=== PATIENT | male | born 1975 | race Caucasian/White ===

== ENCOUNTER 2019-04-19 22:02 | Inpatient (IN) | payer OTHER ==
[~2019-04-19] VITALS: Ht 172.7 cm; Wt 95.3 kg
[2019-04-19] MEDS ORDERED: ZANTAC300 MG (22:10)
[2019-04-19] MEDS ORDERED: NEURONTIN300 MG (22:10)
[2019-04-19] MEDS ORDERED: CLONAZEPAM0.5 MG (22:10)
[2019-04-19] MEDS ORDERED: EFFER-K 10 MEQ10 MEQ (22:11)
[2019-04-19] MEDS ORDERED: AMBIEN10 MG (22:11)
[2019-04-19] MEDS ORDERED: PRILOSEC OTC20 MG (22:12)
--- NOTE | 2019-04-19 22:12 | NUR ---
SE REDCIBE PTE ALERTA Y ORIENTADO X3,TRANSFERIDO DEL [facility] EN AMBULANCIAS,PTE REFIERE DOLOR ABDOMINAL,REFIERE TENER DIVERTICULITIS,LLEGO CANALIZADO MANO IZQUIERDA CON UN 0.9%,ES PTE DEL .
--- NOTE | 2019-04-19 23:38 | NUR ---
MS WARD ORIENTA PTE SOBRE TX MEDICO EL CUAL REFIERE ENTENDER.SE LE EXTRAEN MUESTRAS,SE CANALIZA Y SE COLOCA FLUIDOS DE MANTENIMIENTO,SE NOTIFICA CT.
--- NOTE | 2019-04-20 07:33 | NUR ---
SE RECIBE DE TURNO ANTERIOR. PACIENTE ALERTA Y ORIENTADO EN CINDY ESFERAS. BUEN PATRON RESPIRATORIO. PIEL TIBIA AL TACTO. CANALIZACION PATENTE, LUZ ELENA DE EDEMA Y/O ENROJECIMIENTO RECIBIENDO IV FLUID ORDENADO. PACIENTE EN ESPERA DE CONSULTA CON DR SPICER.
[2019-04-25] MEDS ORDERED: HYOSCYAMINE0.125 M1 SL (08:59)
[2019-04-25] MEDS ORDERED: METRONIDAZ500 MG/100 PO (09:00)
[2019-04-25] MEDS ORDERED: LEVAQUIN750 MG PO (09:01)
== END 2019-04-25 11:55 | disposition home or self-care (01) | DRG 392 ==
LOC: ER 22:02 → SURG 04-20 15:44
PROVIDERS: ADMIT Colon & Rectal Surgery
PROC: BW21Y0Z Computerized Tomography (CT Scan) of Abdomen and Pelvis using Other Contrast, Unenhanced and Enhanced (ICD-10-PCS; principal; 2019-04-20)
PROC: 02HV33Z Insertion of Infusion Device into Superior Vena Cava, Percutaneous Approach (ICD-10-PCS; 2019-04-21)
DX: K57.20 Diverticulitis of large intestine with perforation and abscess without bleeding (principal)

== ENCOUNTER 2019-06-01 09:02 | Day surgery (SDC) | payer OTHER ==
[~2019-06-01 09:02] MED LIST: AMBIEN10 MG; CLONAZEPAM0.5 MG; EFFER-K 10 MEQ10 MEQ; HYOSCYAMINE0.125 M1 SL; LEVAQUIN750 MG PO; METRONIDAZ500 MG/100 PO; NEURONTIN300 MG; PRILOSEC OTC20 MG; ZANTAC300 MG
== END 2019-06-01 14:40 | disposition home or self-care (01) ==
LOC: AMB-ENDOS 09:02 → ADM 12:45 → AMB-ENDOS 12:45
DX: D12.5 Benign neoplasm of sigmoid colon (principal); K64.1 Second degree hemorrhoids

== ENCOUNTER 2019-06-18 14:33 | Inpatient (IN) | payer OTHER ==
[~2019-06-18] VITALS: Ht 172.7 cm; Wt 97.5 kg
[2019-07-03] MEDS ORDERED: INTESTINEX680 M1 PO (10:08)
[2019-07-03] MEDS ORDERED: PROSOM PO (10:09)
[2019-07-03] MEDS ORDERED: CLONAZEPAM0.5 MG PO (10:10)
[2019-07-03] MEDS ORDERED: ELAVIL (10:11)
[2019-07-03] MEDS ORDERED: PRILOSEC OTC20 MG PO (10:11)
[2019-08-30] MEDS ORDERED: EFFEXOR XR150 MG PO (09:56)
[2019-08-30] MEDS ORDERED: AMITRIPTYLINE H50 MG PO (09:57)
[2019-08-30] MEDS ORDERED: ESTAZOLAM2 MG PO (09:57)
[2019-08-30] MEDS ORDERED: VENLAFAXINE HCL75 M1 PO (09:58)
[2019-08-30] MEDS ORDERED: SPIRONOLACTONE50 MG PO (09:58)
[2019-08-30] MEDS ORDERED: NEURONTIN600 M1 PO (10:00)
== END 2019-08-31 17:18 | disposition home or self-care (01) | DRG 330 ==
LOC: SURG 07-10 09:00 → O/R 08-28 07:08 → SURG 08-28 07:08
PROVIDERS: ADMIT Colon & Rectal Surgery
PROC: 0DTG4ZZ Resection of Left Large Intestine, Percutaneous Endoscopic Approach (ICD-10-PCS; principal; 2019-08-28 15:00)
DX: K57.20 Diverticulitis of large intestine with perforation and abscess without bleeding (principal); K92.1 Melena; K29.70 Gastritis, unspecified, without bleeding

== ENCOUNTER 2020-08-22 07:52 | Day surgery (SDC) | payer OTHER ==
[~2020-08-22 07:52] MED LIST changes: +AMITRIPTYLINE H50 MG PO; +CLONAZEPAM0.5 MG PO; +EFFEXOR XR150 MG PO; +ELAVIL; +ESTAZOLAM2 MG PO; +INTESTINEX680 M1 PO; +NEURONTIN600 M1 PO; +PRILOSEC OTC20 MG PO; +PROSOM PO; +SPIRONOLACTONE50 MG PO; +VENLAFAXINE HCL75 M1 PO
== END 2020-08-22 15:10 | disposition home or self-care (01) ==
LOC: AMB-ENDOS 07:52
PROVIDERS: ATTEND Colon & Rectal Surgery
DX: D12.3 Benign neoplasm of transverse colon (principal); K64.2 Third degree hemorrhoids; Z20.828 Contact with and (suspected) exposure to other viral communicable diseases